=== PATIENT | male | born 1990 | race Caucasian/White ===

== ENCOUNTER 2021-11-16 18:42 | Emergency (ER) | payer OTHER ==
[~2021-11-16] VITALS: Ht 177.8 cm; Wt 99.8 kg
--- NOTE | 2021-11-16 18:46 | NUR ---
[facility]
[2021-11-16 18:52] VITALS: BP 138/96
--- NOTE | 2021-11-16 18:57 | NUR ---
31 y/o male, c/o groin pain right side, new onset while at work. pt states he was walking and felt a sharp pain 10/13. denies trauma/fall. denies dysuria, hematuria. pt is ambulatory. pt A&Ox4. pt still has full sensation in his r leg at this time pmh: seizures nka
[2021-11-16] MEDS ORDERED: KETOROLAC 60 MG/2 ML VIAL IM ONE (19:10)
[2021-11-16] MEDS ORDERED: IBUP-2218 PO (19:12)
--- NOTE | 2021-11-16 19:18 | NUR ---
Pt report given to VANESA sandoval. Transfer of care at this time.
--- NOTE | 2021-11-16 21:14 | NUR ---
The patient's care was reviewed and supervised by Jemima Preciado RN.
== END 2021-11-16 20:00 | disposition home or self-care (01) ==
LOC: MED 18:42
DX: M79.661 Pain in right lower leg (principal); Z79.899 Other long term (current) drug therapy
CPT/HCPCS: 96372; 99283; J1885